=== PATIENT | female | born 1945 | race Caucasian/White ===

== ENCOUNTER 2016-08-28 19:20 | Inpatient (IN) | payer OTHER ==
[2016-08-28 19:28] VITALS: BMI 33.3
[2016-08-28] MEDS ORDERED: VANCOMYCIN 1,250 MG in DEXTROSE 5%-WATER - 250 ML IVPB ONE (19:36)
[2016-08-28] MEDS ORDERED: MEROPENEM 500 MG in DEXTROSE 5%-WATER - 100 ML IVPB ONE (19:37)
--- NOTE | 2016-08-28 20:39 | HP ---
Admitting History and Physical - Primary Care Physician PCP: Sharee Pena - Admission Chief Complaint: sent to er for rlex cellulitis - Past Medical History Cardiovascular: Yes: Other (PVD) - Smoking History Smoking history: Never smoked Have you smoked in the past 12 months: No Aproximately how many cigarettes per day: 0 - Alcohol/Substance Use Hx Alcohol Use: No Home Medications - Allergies Allergies/Adverse Reactions: Allergies Allergy/AdvReac Type Severity Reaction Status Date / Time piperacillin sodium Allergy Intermediate Rash Verified 08/28/16 19:25 [From Zosyn] tazobactam sodium Allergy Intermediate Rash Verified 08/28/16 19:25 [From Zosyn] - Home Medications Home Medications: Ambulatory Orders NK [No Known Home Medication] 05/05/16 Physical Examination Vital Signs: Vital Signs Temperature 97.8 F 08/28/16 19:25 Pulse Rate 107 H 08/28/16 19:25 Respiratory Rate 18 08/28/16 19:25 Blood Pressure 142/94 08/28/16 19:25 O2 Sat by Pulse Oximetry (%) 100 08/28/16 19:25 Constitutional: Yes: No Distress HENT: Yes: Atraumatic Neck: Yes: Supple Cardiovascular: Yes: Regular Rate and Rhythm Respiratory: Yes: CTA Bilaterally Gastrointestinal: Yes: Normal Bowel Sounds Extremities: Yes: Other (RLEX CELLULITIS/STASIS ULCER) Neurological: Yes: Alert, Oriented Problem List - Problems (1) Cellulitis and abscess of leg Assessment/Plan: ON IV ABX PER ID WOUND CARE DRESSING CHANGE Code(s): L02.419 - CUTANEOUS ABSCESS OF LIMB, UNSPECIFIED L03.119 - CELLULITIS OF UNSPECIFIED PART OF LIMB (2) Open wound of lower limb Code(s): S81.809A - UNSPECIFIED OPEN WOUND, UNSPECIFIED LOWER LEG, INIT ENCNTR (3) Venous stasis dermatitis of lower extremity Code(s): I83.10 - VARICOSE VEINS OF UNSP LOWER EXTREMITY WITH INFLAMMATION Assessment/Plan Laboratory Tests 08/28/16 08/28/16 08/28/16 19:30 19:50 19:50 WBC 7.6 RBC 4.75 Hgb 13.4 Hct 40.6 MCV 85.5 MCHC 33.1 RDW 13.9 Plt Count 319 D MPV 8.3 Neutrophils % 65.4 Lymphocytes % 26.0 Monocytes % 6.7 Eosinophils % 1.2 Basophils % 0.7 INR 1.02 PTT (Actin FS) 37.1 H VBG pH POC VBG pCO2 POC VBG pO2 Mixed VBG HCO3 Sodium Potassium Chloride Carbon Dioxide Anion Gap BUN Creatinine Creat Clearance w eGFR Random Glucose Lactic Acid 1.585 Calcium Total Bilirubin AST ALT Alkaline Phosphatase Creatine Kinase CK-MB (CK-2) Troponin I Total Protein Albumin Urine Color Urine Appearance Urine pH Ur Specific [place] Urine Protein Urine Glucose (UA) Urine Ketones Urine Blood Urine Nitrite Urine Bilirubin Urine Urobilinogen Ur Leukocyte Esterase Blood Type Antibody Screen 08/28/16 08/28/16 08/28/16 19:50 19:50 23:43 WBC RBC Hgb Hct MCV MCHC RDW Plt Count MPV Neutrophils % Lymphocytes % Monocytes % Eosinophils % Basophils % INR PTT (Actin FS) VBG pH 7.41 POC VBG pCO2 39.7 POC VBG pO2 61.5 H Mixed VBG HCO3 24.8 Sodium 142 Potassium 4.4 Chloride 105 Carbon Dioxide 27 Anion Gap 10 BUN 19 H Creatinine 0.8 Creat Clearance w eGFR > 60 Random Glucose 93 Lactic Acid Calcium 9.9 Total Bilirubin 0.5 D AST 46 H D ALT 56 D Alkaline Phosphatase 81 Creatine Kinase 333 H CK-MB (CK-2) 4.214 H Troponin I < 0.02 Total Protein 7.7 Albumin 3.8 Urine Color Urine Appearance Urine pH Ur Specific [place] Urine Protein Urine Glucose (UA) Urine Ketones Urine Blood Urine Nitrite Urine Bilirubin Urine Urobilinogen Ur Leukocyte Esterase Blood Type A POSITIVE Antibody Screen Negative 08/29/16 11:06 WBC RBC Hgb Hct MCV MCHC RDW Plt Count MPV Neutrophils % Lymphocytes % Monocytes % Eosinophils % Basophils % INR PTT (Actin FS) VBG pH POC VBG pCO2 POC VBG pO2 Mixed VBG HCO3 Sodium Potassium Chloride Carbon Dioxide Anion Gap BUN Creatinine Creat Clearance w eGFR Random Glucose Lactic Acid Calcium Total Bilirubin AST ALT Alkaline Phosphatase Creatine Kinase CK-MB (CK-2) Troponin I Total Protein Albumin Urine Color Yellow Urine Appearance Slcloudy Urine pH 5.0 Ur Specific [place] 1.027 Urine Protein Negative Urine Glucose (UA) Negative Urine Ketones Negative Urine Blood Negative Urine Nitrite Negative Urine Bilirubin Negative Urine Urobilinogen Negative Ur Leukocyte Esterase Negative Blood Type Antibody Screen Active Medications Generic Name Dose Route Start Last Admin Trade Name Freq PRN Reason Stop Dose Admin Heparin Sodium (Porcine) 5,000 unit 08/28/16 22:00 08/29/16 10:41 Heparin - SQ 5,000 unit BID RACHAEL Administration Vancomycin HCl 250 mls @ 250 mls/hr 08/29/16 16:15 08/29/16 18:00 Vancomycin (Pre-Docked) IVPB 250 mls/hr DAILY RACHAEL Administration Protocol Meropenem 1 gm/ Dextrose 100 mls @ 250 mls/hr 08/29/16 16:15 08/29/16 17:09 IVPB 250 mls/hr Q8H-IV RACHAEL Administration Protocol
--- NOTE | 2016-08-28 20:43 | PDOC ---
History of Present Illness - General History Source: Patient <Bulmaro Mansfield - Last Filed: 08/28/16 22:03> - History of Present Illness Initial Comments: 08/28/16 20:44 The patient is a 71 year old female with history of venous stasis dermatitis chronic right lower extremity cellulitis sent to the ED by ID for hospital admission. She notes she has had persistent right lower extremity cellulitis since her last hospital stay in April 2016 with pain and drainage made worse last night. The patient denies fever or chills. She denies nausea, vomiting, or diarrhea. She denies chest pain or shortness of breath. She is to be admitted under Dr. Pena. Pt is allergic to Zosyn. ID: Being followed by Dr. Stroud <Natividad Velez - Last Filed: 08/28/16 22:48> - General Chief Complaint: Wound Infection Stated Complaint: PCP ADMIT Time Seen by Provider: 08/28/16 19:24 Past History - Past Medical History Anemia: No Asthma: No Cancer: No Cardiac Disorders: No CVA: No COPD: No CHF: No Dementia: No Diabetes: No GI Disorders: No Disorders: No HTN: No Hypercholesterolemia: No Liver Disease: No Seizures: No Thyroid Disease: No - Psycho/Social/Smoking Cessation Hx Anxiety: No Suicidal Ideation: No Smoking History: Never smoked Have you smoked in the past 12 months: No Number of Cigarettes Smoked Daily: 0 Information on smoking cessation initiated: No Hx Alcohol Use: No Drug/Substance Use Hx: No Substance Use Type: None Hx Substance Use Treatment: No <ShivaraBulmaro - Last Filed: 08/28/16 22:03> <Natividad Velez - Last Filed: 08/28/16 22:48> - Past Medical History Allergies/Adverse Reactions: Allergies Allergy/AdvReac Type Severity Reaction Status Date / Time piperacillin sodium Allergy Intermediate Rash Verified 08/28/16 19:25 [From Zosyn] tazobactam sodium Allergy Intermediate Rash Verified 08/28/16 19:25 [From Zosyn] Home Medications: Ambulatory Orders NK [No Known Home Medication] 05/05/16 Review of Systems - Review of Systems Able to Perform ROS?: Yes Comments:: 08/28/16 20:47 GENERAL/CONSTITUTIONAL: No fever or chills. No weakness. HEAD, EYES, EARS, NOSE AND THROAT: No change in vision. No ear pain or discharge. No sore throat CARDIOVASCULAR: No chest pain or shortness of breath. RESPIRATORY: No cough, wheezing, or hemoptysis. GASTROINTESTINAL: No nausea, vomiting, diarrhea or constipation. GENITOURINARY: No dysuria, frequency, or change in urination. MUSCULOSKELETAL: No joint or muscle swelling or pain. No neck or back pain. SKIN: Right lower extremity wound with associated pain and malodorous drainage. NEUROLOGIC: No headache, vertigo, loss of consciousness, or change in strength/ sensation. ENDOCRINE: No increased thirst. No abnormal weight change. HEMATOLOGIC/LYMPHATIC: No anemia, easy bleeding, or history of blood clots. ALLERGIC/IMMUNOLOGIC: No hives or skin allergy. <Natividad Velez - Last Filed: 08/28/16 22:48> *Physical Exam - Vital Signs Last Vital Signs Temp Pulse Resp BP Pulse Ox 97.8 F 107 H 18 142/94 100 08/28/16 19:25 08/28/16 19:25 08/28/16 19:25 08/28/16 19:25 08/28/16 19:25 <Bulmaro Mansfield - Last Filed: 08/28/16 22:03> - Vital Signs Last Vital Signs Temp Pulse Resp BP Pulse Ox 97.8 F 107 H 18 142/94 100 08/28/16 19:25 08/28/16 19:25 08/28/16 19:25 08/28/16 19:25 08/28/16 19:25 - Physical Exam Comments: 08/28/16 20:52 GENERAL: Awake, alert, and fully oriented, in no acute distress HEAD: No signs of trauma EYES: PERRLA, EOMI, sclera anicteric, conjunctiva clear ENT: Auricles normal inspection, hearing grossly normal, nares patent, oropharynx clear without exudates. Moist mucosa NECK: Normal ROM, supple, no lymphadenopathy, JVD, or masses LUNGS: Breath sounds equal, clear to auscultation bilaterally. No wheezes, and no crackles HEART: Regular rate and rhythm, normal S1 and S2, no murmurs, rubs or gallops ABDOMEN: Soft, obese, nontender, normoactive bowel sounds. No guarding, no rebound. No masses EXTREMITIES: Normal range of motion, no edema. No clubbing or cyanosis. No cords. NEUROLOGICAL: Cranial nerves II through XII grossly intact. Normal speech, normal gait SKIN: Right lower extremity is diffusely erythematous on the right calf and ankle.Superficial draining wounds lateral malleolus. Brawny venous stasis changes. Otherwise warm, dry, normal turgor. <Natividad Velez - Last Filed: 08/28/16 22:48> Heart Score/ECG Review #1 08/28/16 20:58 EKG obtained 20:52. *Poor data quality* Sinus tachycardia, minimal voltage criteria for LVH, may benormal variant. Inferior infarct, age undetermined. Anterolateral infarct, age undertimed. Abnormal ECG. Vent rate 104 bpm. <Natividad Velez - Last Filed: 08/28/16 22:48> ED Treatment Course - LABORATORY CBC & Chemistry Diagram: 08/28/16 19:50 08/28/16 19:50 <Bulmaro Mansfield - Last Filed: 08/28/16 22:03> - LABORATORY CBC & Chemistry Diagram: 08/28/16 19:50 08/28/16 19:50 - RADIOLOGY Radiograph Interpretation: 08/28/16 22:47 RLE Doppler US read by Dr. Dos Santos as negative for DVT. 08/28/16 22:48 Chest x-ray, read and reviewed by Dr. Dos Santos, reveals no significant change from previous imaging. Mild cardiomegaly with no acute lung disease. <Natividad Velez - Last Filed: 08/28/16 22:48> Medical Decision Making - Medical Decision Making 08/28/16 22:03 Dr. Mansfield: The scribe's documentation has been prepared under my direction and personally reviewed by me in its entirery. I confirm that the note above accurately reflects all work, treatment, procedures, and medical decision making performed by me. Patient will be Admitted for iV antibiotics for right leg cellulitis to [facility]. <Bulmaro Mansfield - Last Filed: 08/28/16 22:03> *DC/Admit/Observation/Transfer - Discharge Dispostion Admit: Yes <Bulmaro Mansfield - Last Filed: 08/28/16 22:03> - Attestations Scribe Attestion: 08/28/16 20:54 Documentation prepared by Natividad Velez, acting as manager medical affairs for Bulmaro Mansfield DO. <Natividad Velez - Last Filed: 08/28/16 22:48> Diagnosis at time of Disposition: Open wound of lower limb, Cellulitis and abscess of leg - Referrals
[2016-08-28 20:59] LABS: BASOPHIL 0.7 % (0-2.0); EOSINOPHIL 1.2 % (0-4.5); MCH 28.3 pg (25.7-33.7); MCHC 33.1 g/dl (32.0-36.0); MEAN CELL VOLUME 85.5 fl (80-96); MEAN PLT VOLUME 8.3 fl (7.5-11.1); NEUTROPHILS 65.4 % (42.8-82.8); PLATELET COUNT 319 K/MM3 (134-434); RDW 13.9 % (11.6-15.6); WHITE BLOOD COUNT 7.6 K/mm3 (4.0-10.0)
[2016-08-28 21:09] LABS: ALBUMIN 3.8 g/dl (3.4-5.0); ANION GAP 10 (8-16); BILIRUBIN,TOTAL 0.5 mg/dL (0.2-1.0); CALCIUM 9.9 mg/dL (8.5-10.1); CO2 27 mmol/L (21-32); CREATININE 0.8 mg/dL (0.55-1.02); GLUCOSE,RANDOM 93 mg/dL (74-106); SGPT/ALT 56 U/L (12-78); TOT PROT 7.7 g/dl (6.4-8.2)
[2016-08-28 21:12] LABS: ALK PHOS 81 U/L (45-117); TROPONIN I < 0.02 ng/ml (0.00-0.05)
[2016-08-28 21:16] LABS: INR 1.02 (0.82-1.09); PROTHROMBIN TIME (PATIENT) 11.2 SEC (9.98-11.88)
[2016-08-28 21:19] LABS: ACTIVATED PTT 37.1 SECONDS (26.9-34.4); SGOT/AST 46 U/L (15-37)
[2016-08-28] MEDS ORDERED: morphine CARPU-JECT 2 MG/1 ML DISP.SYRIN IVPUSH ONE (22:00)
[2016-08-28] MEDS ORDERED: ONDANSETRON 4 MG/2 ML VIAL IVPUSH STA (22:00)
[2016-08-28] MEDS ORDERED: morphine CARPU-JECT 2 MG/1 ML DISP.SYRIN ONE (22:01)
[2016-08-28] MEDS ORDERED: morphine CARPU-JECT 4 MG/1 ML DISP.SYRIN ONE (22:01)
[2016-08-28] MEDS ORDERED: ONDANSETRON 4 MG/2 ML VIAL ONE (22:01)
[2016-08-28] MEDS: HEPARIN NA (PORCINE) 5,000 UNITS/ML 1ML VIAL SQ SCH (22:20)
[2016-08-28 23:55] LABS: VENOUS BLOOD GAS HCO3 24.8 meq/L (19-25); VENOUS PH 7.41 (7.32-7.42)
[2016-08-29] MEDS ORDERED: morphine CARPU-JECT 2 MG/1 ML DISP.SYRIN IVPUSH ONE (02:38)
[2016-08-29] MEDS ORDERED: morphine CARPU-JECT 2 MG/1 ML DISP.SYRIN ONE (02:39)
[2016-08-29] MEDS ORDERED: morphine CARPU-JECT 4 MG/1 ML DISP.SYRIN ONE (02:39)
[2016-08-29] MEDS ORDERED: HEPARIN NA (PORCINE) 5,000 UNITS/ML 1ML VIAL ONE (10:15)
[2016-08-29] MEDS: HEPARIN NA (PORCINE) 5,000 UNITS/ML 1ML VIAL SQ SCH ×2 (10:41→21:30)
[2016-08-29 11:20] LABS: URINE APPEARANCE SLCLOUDY; URINE BILIRUBIN NEGATIVE (NEGATIVE); URINE BLOOD NEGATIVE (NEGATIVE); URINE COLOR YELLOW; URINE GLUCOSE (UA) NEGATIVE (NEGATIVE); URINE KETONE NEGATIVE (NEGATIVE); URINE LEUK ESTERASE NEGATIVE (NEGATIVE); URINE NITRITE NEGATIVE (NEGATIVE); URINE PROTEIN NEGATIVE (NEGATIVE); URINE UROBILINOGEN NEGATIVE E.U./dl (0.2-1.0)
--- NOTE | 2016-08-29 14:35 | CONSULT ---
Consult Consult Specialty:: infectious diseases Referred by:: Reason for Consultation:: cellulitis of the rt leg - History of Present Illness Chief Complaint: swelling of the leg with increased oozing History of Present Illness: 71 year old female with a history of chronic venous stasis dermatitis and RLE cellulitis, s/p hospitalizatioln in April 2016 for cellulitis was admitted for worsening of cellulitis and pain in the leg patient has been having abx and treatment for last 3 months and her leg ahs been waxing and waning and in the last 2 weeks patients drainage from the leg with pain has increased and it is hard for her to bear weight patient when came to the office had profuse drainage which was very foul smelling and the pain had increased patient did not want to get admitted but i told her that there is no other choice that iv abx at this time after trying for last 3 months to control her infection and cellulits and drainage and failure of multiple oral abx treatment and she agreed and got admitted in the hospital for treatment - History Source History Provided By: Patient Limitations to Obtaining History: No Limitations - Alcohol/Substance Use Hx Alcohol Use: No - Smoking History Smoking history: Never smoked Have you smoked in the past 12 months: No Aproximately how many cigarettes per day: 0 Home Medications - Allergies Allergies/Adverse Reactions: Allergies Allergy/AdvReac Type Severity Reaction Status Date / Time piperacillin sodium Allergy Intermediate Rash Verified 08/28/16 19:25 [From Zosyn] tazobactam sodium Allergy Intermediate Rash Verified 08/28/16 19:25 [From Zosyn] - Home Medications Home Medications: Ambulatory Orders NK [No Known Home Medication] 05/05/16 Review of Systems - Review of Systems Constitutional: reports: Other Eyes: reports: No Symptoms HENT: reports: No Symptoms Neck: reports: No Symptoms Cardiovascular: reports: No Symptoms Respiratory: reports: No Symptoms Gastrointestinal: reports: No Symptoms Genitourinary: reports: No Symptoms Musculoskeletal: reports: No Symptoms Integumentary: reports: Erythema Neurological: reports: No Symptoms Endocrine: reports: No Symptoms Hematology/Lymphatic: reports: No Symptoms Psychiatric: reports: No Symptoms Physical Exam Vital Signs: Vital Signs Temperature 98.1 F 08/29/16 11:51 Pulse Rate 78 08/29/16 11:51 Respiratory Rate 18 08/29/16 11:51 Blood Pressure 127/56 08/29/16 11:51 O2 Sat by Pulse Oximetry (%) 95 08/29/16 11:51 Constitutional: Yes: Calm, Mild Distress, Obese Eyes: Yes: Conjunctiva Clear HENT: Yes: Atraumatic, Normocephalic Neck: Yes: Supple Cardiovascular: Yes: Regular Rate and Rhythm Respiratory: Yes: Regular, CTA Bilaterally Gastrointestinal: Yes: Normal Bowel Sounds, Soft Musculoskeletal: Yes: Muscle Pain Extremities: Yes: Erythema (rt leg), Other (profuse draiange from the leg) Edema: LLE: Trace, RLE: Trace Integumentary: Yes: Erythema Neurological: Yes: Alert, Oriented Psychiatric: Yes: Alert Imaging - Results Chest X-ray: Report Reviewed, Image Reviewed Ultrasound: Report Reviewed, Image Reviewed Assessment/Plan Problem List - Problems (1) Cellulitis and abscess of leg Code(s): L02.419 - CUTANEOUS ABSCESS OF LIMB, UNSPECIFIED L03.119 - CELLULITIS OF UNSPECIFIED PART OF LIMB (2) Open wound of lower limb Code(s): S81.809A - UNSPECIFIED OPEN WOUND, UNSPECIFIED LOWER LEG, INIT ENCNTR plan will start on abx close watch wound care elevation of the leg
--- NOTE | 2016-08-29 16:09 | EKG ---
Test Reason : Blood Pressure : / mmHG Vent. Rate : 104 BPM Atrial Rate : 104 BPM P-R Int : 162 ms QRS Dur : 080 ms QT Int : 336 ms P-R-T Axes : 036 -25 018 degrees QTc Int : 441 ms POOR DATA QUALITY, INTERPRETATION MAY BE ADVERSELY AFFECTED SINUS TACHYCARDIA MINIMAL VOLTAGE CRITERIA FOR LVH, MAY BE NORMAL VARIANT INFERIOR INFARCT , AGE UNDETERMINED ANTEROLATERAL INFARCT , AGE UNDETERMINED ABNORMAL ECG WHEN COMPARED WITH ECG OF 29-MAR-2016 01:25, ANTERIOR INFARCT IS NOW PRESENT ANTEROLATERAL INFARCT IS NOW PRESENT NO SIGNIFICANT CHANGE WAS FOUND Confirmed by SANDRA HOLLINS MD ([id number]) on 08/29/2016 4:08:30 PM Referred By: Confirmed By:SANDRA HOLLINS MD
[2016-08-29] MEDS ORDERED: MEROPENEM 1 GM in DEXTROSE 5%-WATER - 250 ML IVPB SCH (16:15)
[2016-08-29] MEDS ORDERED: MEROPENEM 1 GM in DEXTROSE 5%-WATER - 100 ML IVPB SCH (16:15)
[2016-08-29] MEDS: MEROPENEM 1 GM in DEXTROSE 5%-WATER - 100 ML IVPB SCH (17:09)
[2016-08-29] MEDS: VANCOMYCIN 1 GRAM (PRE-DOCKED) 250 ML IVPB SCH (18:00)
--- NOTE | 2016-08-29 19:44 | PN ---
Progress Note, Physician History of Present Illness: STABLE - Current Medication List Current Medications: Active Medications Heparin Sodium (Porcine) (Heparin -) 5,000 unit SQ BID RACHAEL Last Admin: 08/29/16 10:41 Dose: 5,000 unit Vancomycin HCl (Vancomycin (Pre-Docked)) 250 mls @ 250 mls/hr IVPB DAILY RACHAEL PRN Reason: Protocol Last Admin: 08/29/16 18:00 Dose: 250 mls/hr Meropenem 1 gm/ Dextrose 100 mls @ 250 mls/hr IVPB Q8H-IV RACHAEL PRN Reason: Protocol Last Admin: 08/29/16 17:09 Dose: 250 mls/hr - Objective Vital Signs: Vital Signs Temperature 98.1 F 08/29/16 19:00 Pulse Rate 82 08/29/16 19:00 Respiratory Rate 18 08/29/16 19:00 Blood Pressure 127/70 08/29/16 19:00 O2 Sat by Pulse Oximetry (%) 95 08/29/16 11:51 Constitutional: Yes: No Distress HENT: Yes: Atraumatic Neck: Yes: Supple Cardiovascular: Yes: Regular Rate and Rhythm Respiratory: Yes: CTA Bilaterally Gastrointestinal: Yes: Normal Bowel Sounds Extremities: Yes: Other (RLEX CELLULITIS) Neurological: Yes: Alert, Oriented Labs: INR, PTT INR 1.02 (0.82-1.09) 08/28/16 19:50 Problem List - Problems (1) Cellulitis and abscess of leg Code(s): L02.419 - CUTANEOUS ABSCESS OF LIMB, UNSPECIFIED L03.119 - CELLULITIS OF UNSPECIFIED PART OF LIMB (2) Open wound of lower limb Code(s): S81.809A - UNSPECIFIED OPEN WOUND, UNSPECIFIED LOWER LEG, INIT ENCNTR (3) Venous stasis dermatitis of lower extremity Code(s): I83.10 - VARICOSE VEINS OF UNSP LOWER EXTREMITY WITH INFLAMMATION Assessment/Plan 1.R FOOT CELLULITIS IV ABX, WOUND CARE PRN PAIN MEDS MULTI VITAMIN
[2016-08-29] MEDS ORDERED: oxyCODONE HCL 5 MG TABLET PO PRN (20:36)
[2016-08-29] MEDS: oxyCODONE HCL 5 MG TABLET PO PRN (21:31)
[2016-08-29] MEDS: ACETAMINOPHEN 325 MG TABLET (FP) PO PRN (21:32)
[2016-08-30] MEDS ORDERED: PT OWN MED DRAWER 7, Y5N ONE (00:51)
[2016-08-30] MEDS: MEROPENEM 1 GM in DEXTROSE 5%-WATER - 100 ML IVPB SCH ×3 (01:25→18:05)
[2016-08-30] MEDS: oxyCODONE HCL 5 MG TABLET PO PRN ×3 (06:47→22:09)
[2016-08-30] MEDS: ACETAMINOPHEN 325 MG TABLET (FP) PO PRN ×3 (06:48→22:08)
[2016-08-30] MEDS: HEPARIN NA (PORCINE) 5,000 UNITS/ML 1ML VIAL SQ SCH ×2 (10:08→22:10)
[2016-08-30] MEDS: VANCOMYCIN 1 GRAM (PRE-DOCKED) 250 ML IVPB SCH (10:42)
--- NOTE | 2016-08-30 13:37 | PN ---
Progress Note, Physician History of Present Illness: leg still paining still oozing but she feels better - Current Medication List Current Medications: Active Medications Acetaminophen (Tylenol -) 325 mg PO Q4H PRN PRN Reason: FEVER OR PAIN Acetaminophen (Tylenol -) 650 mg PO Q4H PRN PRN Reason: FEVER OR PAIN Last Admin: 08/30/16 06:48 Dose: 650 mg Heparin Sodium (Porcine) (Heparin -) 5,000 unit SQ BID RACHAEL Last Admin: 08/30/16 10:08 Dose: 5,000 unit Vancomycin HCl (Vancomycin (Pre-Docked)) 250 mls @ 250 mls/hr IVPB DAILY RACHAEL PRN Reason: Protocol Last Admin: 08/30/16 10:42 Dose: 250 mls/hr Meropenem 1 gm/ Dextrose 100 mls @ 250 mls/hr IVPB Q8H-IV RACHAEL PRN Reason: Protocol Last Admin: 08/30/16 10:08 Dose: 250 mls/hr Oxycodone HCl (Roxicodone -) 5 mg PO Q4H PRN Oxycodone HCl (Roxicodone -) 10 mg PO Q4H PRN Last Admin: 08/30/16 06:47 Dose: 10 mg - Objective Vital Signs: Vital Signs Temperature 98.8 F 08/30/16 08:00 Pulse Rate 79 08/30/16 08:00 Respiratory Rate 20 08/30/16 08:00 Blood Pressure 108/65 08/30/16 08:00 O2 Sat by Pulse Oximetry (%) 95 08/29/16 20:31 Constitutional: Yes: No Distress, Calm HENT: Yes: Atraumatic, Normocephalic Cardiovascular: Yes: Regular Rate and Rhythm Respiratory: Yes: Regular, CTA Bilaterally Gastrointestinal: Yes: Normal Bowel Sounds, Soft Musculoskeletal: Yes: WNL Extremities: Yes: Erythema (improving), Other (wound seen still oozing a lot cellulitis improving) Integumentary: Yes: Erythema (resolving), Venous Stasis Changes, Other (oozing) Neurological: Yes: Alert, Oriented Psychiatric: Yes: Alert, Oriented Labs: INR, PTT INR 1.02 (0.82-1.09) 08/28/16 19:50 Assessment/Plan Problem List - Problems (1) Cellulitis and abscess of leg Code(s): L02.419 - CUTANEOUS ABSCESS OF LIMB, UNSPECIFIED L03.119 - CELLULITIS OF UNSPECIFIED PART OF LIMB (2) Open wound of lower limb Code(s): S81.809A - UNSPECIFIED OPEN WOUND, UNSPECIFIED LOWER LEG, INIT ENCNTR plan continue abx continue monitoring wound cx result noted await for identification of the organism await for sensitivites
--- NOTE | 2016-08-30 17:14 | PN ---
Progress Note, Physician History of Present Illness: STABLE - Current Medication List Current Medications: Active Medications Acetaminophen (Tylenol -) 325 mg PO Q4H PRN PRN Reason: FEVER OR PAIN Last Admin: 08/30/16 13:43 Dose: 325 mg Acetaminophen (Tylenol -) 650 mg PO Q4H PRN PRN Reason: FEVER OR PAIN Last Admin: 08/30/16 06:48 Dose: 650 mg Ascorbic Acid (Vitamin C -) 500 mg PO DAILY [facility] Heparin Sodium (Porcine) (Heparin -) 5,000 unit SQ BID RACHAEL Last Admin: 08/30/16 10:08 Dose: 5,000 unit Vancomycin HCl (Vancomycin (Pre-Docked)) 250 mls @ 250 mls/hr IVPB DAILY RACHAEL PRN Reason: Protocol Last Admin: 08/30/16 10:42 Dose: 250 mls/hr Meropenem 1 gm/ Dextrose 100 mls @ 250 mls/hr IVPB Q8H-IV RACHAEL PRN Reason: Protocol Last Admin: 08/30/16 10:08 Dose: 250 mls/hr Multivitamins/Minerals/Vitamin C (Tab-A-Vit -) 1 tab PO DAILY [facility] Oxycodone HCl (Roxicodone -) 5 mg PO Q4H PRN Oxycodone HCl (Roxicodone -) 10 mg PO Q4H PRN Last Admin: 08/30/16 13:44 Dose: 10 mg - Objective Vital Signs: Vital Signs Temperature 99 F 08/30/16 14:53 Pulse Rate 79 08/30/16 14:53 Respiratory Rate 20 08/30/16 14:53 Blood Pressure 118/65 08/30/16 14:53 O2 Sat by Pulse Oximetry (%) 97 08/30/16 09:00 Constitutional: Yes: No Distress HENT: Yes: Atraumatic Neck: Yes: Supple Cardiovascular: Yes: Regular Rate and Rhythm Respiratory: Yes: CTA Bilaterally Gastrointestinal: Yes: Normal Bowel Sounds Extremities: Yes: Other (R СЕРГЕЙ CELLULITIS) Neurological: Yes: Alert, Oriented Labs: INR, PTT INR 1.02 (0.82-1.09) 08/28/16 19:50 Problem List - Problems (1) Cellulitis and abscess of leg Code(s): L02.419 - CUTANEOUS ABSCESS OF LIMB, UNSPECIFIED L03.119 - CELLULITIS OF UNSPECIFIED PART OF LIMB (2) Open wound of lower limb Code(s): S81.809A - UNSPECIFIED OPEN WOUND, UNSPECIFIED LOWER LEG, INIT ENCNTR (3) Venous stasis dermatitis of lower extremity Code(s): I83.10 - VARICOSE VEINS OF UNSP LOWER EXTREMITY WITH INFLAMMATION Assessment/Plan Assessment/Plan 1.R FOOT CELLULITIS IV ABX, WOUND CARE PRN PAIN MEDS MULTI VITAMIN WOUND CARE CONSULT
[2016-08-30] MEDS: ASCORBIC ACID 500 MG TABLET (FP) PO SCH (18:06)
[2016-08-30] MEDS: MULTIVITAMINS (DAILY MVI) TABLET (FP) PO SCH (18:06)
[2016-08-31] MEDS ORDERED: PT OWN MED DRAWER 7, Y5N ONE ×2 (01:16→18:10)
[2016-08-31] MEDS: MEROPENEM 1 GM in DEXTROSE 5%-WATER - 100 ML IVPB SCH ×3 (01:37→18:19)
[2016-08-31] MEDS: oxyCODONE HCL 5 MG TABLET PO PRN ×4 (05:43→21:11)
[2016-08-31] MEDS: ACETAMINOPHEN 325 MG TABLET (FP) PO PRN ×2 (05:44→14:24)
[2016-08-31] MEDS: MULTIVITAMINS (DAILY MVI) TABLET (FP) PO SCH (10:30)
[2016-08-31] MEDS: ASCORBIC ACID 500 MG TABLET (FP) PO SCH (10:30)
[2016-08-31] MEDS: HEPARIN NA (PORCINE) 5,000 UNITS/ML 1ML VIAL SQ SCH ×2 (10:30→21:11)
[2016-08-31] MEDS: VANCOMYCIN 1 GRAM (PRE-DOCKED) 250 ML IVPB SCH (10:31)
--- NOTE | 2016-08-31 15:30 | PN ---
Progress Note, Physician History of Present Illness: patient starting to feel better foul smell still present but better still oozing a lot dresing changed couple of times pain presnt but improving - Current Medication List Current Medications: Active Medications Acetaminophen (Tylenol -) 325 mg PO Q4H PRN PRN Reason: FEVER OR PAIN Last Admin: 08/30/16 13:43 Dose: 325 mg Acetaminophen (Tylenol -) 650 mg PO Q4H PRN PRN Reason: FEVER OR PAIN Last Admin: 08/31/16 14:24 Dose: 650 mg Ascorbic Acid (Vitamin C -) 500 mg PO DAILY [facility] Last Admin: 08/31/16 10:30 Dose: 500 mg Heparin Sodium (Porcine) (Heparin -) 5,000 unit SQ BID [facility] Last Admin: 08/31/16 10:30 Dose: 5,000 unit Vancomycin HCl (Vancomycin (Pre-Docked)) 250 mls @ 250 mls/hr IVPB DAILY RACHAEL PRN Reason: Protocol Last Admin: 08/31/16 10:31 Dose: 250 mls/hr Meropenem 1 gm/ Dextrose 100 mls @ 250 mls/hr IVPB Q8H-IV RACHAEL PRN Reason: Protocol Last Admin: 08/31/16 10:28 Dose: 250 mls/hr Multivitamins/Minerals/Vitamin C (Tab-A-Vit -) 1 tab PO DAILY [facility] Last Admin: 08/31/16 10:30 Dose: 1 tab Oxycodone HCl (Roxicodone -) 5 mg PO Q4H PRN Oxycodone HCl (Roxicodone -) 10 mg PO Q4H PRN Last Admin: 08/31/16 14:23 Dose: 10 mg - Objective Vital Signs: Vital Signs Temperature 98.5 F 08/31/16 14:31 Pulse Rate 73 08/31/16 14:31 Respiratory Rate 18 08/31/16 14:31 Blood Pressure 135/94 08/31/16 14:31 O2 Sat by Pulse Oximetry (%) 97 08/30/16 09:00 Constitutional: Yes: Calm, Mild Distress Cardiovascular: Yes: Regular Rate and Rhythm Respiratory: Yes: Regular, CTA Bilaterally Gastrointestinal: Yes: Normal Bowel Sounds, Soft Musculoskeletal: Yes: Other Extremities: Yes: Other (oozing) Integumentary: Yes: Erythema (improving) Neurological: Yes: Alert, Oriented Psychiatric: Yes: Alert Labs: INR, PTT INR 1.02 (0.82-1.09) 08/28/16 19:50 Assessment/Plan Problem List - Problems (1) Cellulitis and abscess of leg Code(s): L02.419 - CUTANEOUS ABSCESS OF LIMB, UNSPECIFIED L03.119 - CELLULITIS OF UNSPECIFIED PART OF LIMB (2) Open wound of lower limb Code(s): S81.809A - UNSPECIFIED OPEN WOUND, UNSPECIFIED LOWER LEG, INIT ENCNTR plan continue abx continue monitoring wound cx result noted sensitivities noted await for one more organism leg still not out of [place] yet will have to make a decision depending on drainage 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
--- NOTE | 2016-08-31 18:52 | PN ---
Progress Note, Physician History of Present Illness: STABLE - Current Medication List Current Medications: Active Medications Acetaminophen (Tylenol -) 325 mg PO Q4H PRN PRN Reason: FEVER OR PAIN Last Admin: 08/30/16 13:43 Dose: 325 mg Acetaminophen (Tylenol -) 650 mg PO Q4H PRN PRN Reason: FEVER OR PAIN Last Admin: 08/31/16 14:24 Dose: 650 mg Ascorbic Acid (Vitamin C -) 500 mg PO DAILY [facility] Last Admin: 08/31/16 10:30 Dose: 500 mg Heparin Sodium (Porcine) (Heparin -) 5,000 unit SQ BID [facility] Last Admin: 08/31/16 10:30 Dose: 5,000 unit Vancomycin HCl (Vancomycin (Pre-Docked)) 250 mls @ 250 mls/hr IVPB DAILY [facility] PRN Reason: Protocol Last Admin: 08/31/16 10:31 Dose: 250 mls/hr Meropenem 1 gm/ Dextrose 100 mls @ 250 mls/hr IVPB Q8H-IV [facility] PRN Reason: Protocol Last Admin: 08/31/16 18:19 Dose: 250 mls/hr Multivitamins/Minerals/Vitamin C (Tab-A-Vit -) 1 tab PO DAILY [facility] Last Admin: 08/31/16 10:30 Dose: 1 tab Oxycodone HCl (Roxicodone -) 5 mg PO Q4H PRN Oxycodone HCl (Roxicodone -) 10 mg PO Q4H PRN Last Admin: 08/31/16 14:23 Dose: 10 mg - Objective Vital Signs: Vital Signs Temperature 98.2 F 08/31/16 18:00 Pulse Rate 70 08/31/16 18:00 Respiratory Rate 20 08/31/16 18:00 Blood Pressure 132/60 08/31/16 18:00 O2 Sat by Pulse Oximetry (%) 97 08/31/16 09:00 Constitutional: Yes: No Distress HENT: Yes: Atraumatic Neck: Yes: Supple Cardiovascular: Yes: Regular Rate and Rhythm Respiratory: Yes: CTA Bilaterally Gastrointestinal: Yes: Normal Bowel Sounds Extremities: Yes: WNL Edema: LLE: 2+, RLE: 3+ Neurological: Yes: Alert, Oriented Labs: INR, PTT INR 1.02 (0.82-1.09) 08/28/16 19:50 Problem List - Problems (1) Cellulitis and abscess of leg Code(s): L02.419 - CUTANEOUS ABSCESS OF LIMB, UNSPECIFIED L03.119 - CELLULITIS OF UNSPECIFIED PART OF LIMB (2) Open wound of lower limb Code(s): S81.809A - UNSPECIFIED OPEN WOUND, UNSPECIFIED LOWER LEG, INIT ENCNTR (3) Venous stasis dermatitis of lower extremity Code(s): I83.10 - VARICOSE VEINS OF UNSP LOWER EXTREMITY WITH INFLAMMATION Assessment/Plan Assessment/Plan 1.R FOOT CELLULITIS IV ABX, WOUND CARE PRN PAIN MEDS MULTI VITAMIN WOUND CARE CONSULT id note reviewed picc line?
[2016-09-01] MEDS: MEROPENEM 1 GM in DEXTROSE 5%-WATER - 100 ML IVPB SCH ×3 (02:01→17:55)
[2016-09-01] MEDS ORDERED: PT OWN MED DRAWER 7, Y5N ONE ×2 (04:55→17:53)
[2016-09-01] MEDS: oxyCODONE HCL 5 MG TABLET PO PRN ×3 (05:01→22:06)
[2016-09-01] MEDS: ACETAMINOPHEN 325 MG TABLET (FP) PO PRN ×3 (05:02→22:06)
[2016-09-01 07:22] LABS: BASOPHIL 0.8 % (0-2.0); EOSINOPHIL 2.6 % (0-4.5); MCH 28.6 pg (25.7-33.7); MCHC 33.3 g/dl (32.0-36.0); MEAN PLT VOLUME 7.9 fl (7.5-11.1); NEUTROPHILS 61.8 % (42.8-82.8); PLATELET COUNT 225 K/MM3 (134-434); RDW 13.9 % (11.6-15.6); WHITE BLOOD COUNT 5.3 K/mm3 (4.0-10.0)
[2016-09-01 08:45] LABS: ALBUMIN 3.4 g/dl (3.4-5.0); ALK PHOS 73 U/L (45-117); ANION GAP 8 (8-16); BILIRUBIN,TOTAL 0.7 mg/dL (0.2-1.0); CALCIUM 9.3 mg/dL (8.5-10.1); CO2 29 mmol/L (21-32); CREATININE 0.8 mg/dL (0.55-1.02); GLUCOSE,RANDOM 95 mg/dL (74-106); SGOT/AST 20 U/L (15-37); SGPT/ALT 34 U/L (12-78)
--- NOTE | 2016-09-01 09:55 | CONSULT ---
Consult - Past Medical History Cardio/Vascular: Yes: Other (PVD) - Alcohol/Substance Use Hx Alcohol Use: No - Smoking History Smoking history: Never smoked Have you smoked in the past 12 months: No Aproximately how many cigarettes per day: 0 Home Medications - Allergies Allergies/Adverse Reactions: Allergies Allergy/AdvReac Type Severity Reaction Status Date / Time piperacillin sodium Allergy Intermediate Rash Verified 08/28/16 19:25 [From Zosyn] tazobactam sodium Allergy Intermediate Rash Verified 08/28/16 19:25 [From Zosyn] - Home Medications Home Medications: Ambulatory Orders NK [No Known Home Medication] 05/05/16 Physical Exam Vital Signs: Vital Signs Temperature 97.2 F L 09/01/16 06:00 Pulse Rate 67 09/01/16 06:00 Respiratory Rate 20 09/01/16 06:00 Blood Pressure 120/70 09/01/16 06:00 O2 Sat by Pulse Oximetry (%) 97 08/31/16 09:00 Labs: CBC, BMP 09/01/16 06:00 09/01/16 08:00 Assessment/Plan Vascular surgery Pt seen and examined. dressing changed. Left lower extremity with palpable DP pulse. Pt with drainaige on dressing. Pt with Venous stasis and excoriations medial malleous. Due to venous insuff. Leg wrapped with LEO for compression. Will need to come to wound care clinic for venous reflux studies. Will then need EVLT ( endovenous laser therapy) for venous insuff. This will decrease the drainage and help the swelling. Can wear LEO for compression for now. When pt comes to wound care clinic will fit pts with tubagrips. Antibiotics for current cellulitis. Will follow. Jr Larios DO
[2016-09-01] MEDS: ASCORBIC ACID 500 MG TABLET (FP) PO SCH (10:23)
[2016-09-01] MEDS: MULTIVITAMINS (DAILY MVI) TABLET (FP) PO SCH (10:23)
[2016-09-01] MEDS: HEPARIN NA (PORCINE) 5,000 UNITS/ML 1ML VIAL SQ SCH ×2 (10:24→22:04)
[2016-09-01] MEDS: VANCOMYCIN 1 GRAM (PRE-DOCKED) 250 ML IVPB SCH (10:24)
--- NOTE | 2016-09-01 14:33 | PN ---
Progress Note, Physician History of Present Illness: patient stable drainage still present - Current Medication List Current Medications: Active Medications Acetaminophen (Tylenol -) 325 mg PO Q4H PRN PRN Reason: FEVER OR PAIN Last Admin: 08/30/16 13:43 Dose: 325 mg Acetaminophen (Tylenol -) 650 mg PO Q4H PRN PRN Reason: FEVER OR PAIN Last Admin: 09/01/16 10:23 Dose: 650 mg Ascorbic Acid (Vitamin C -) 500 mg PO DAILY [facility] Last Admin: 09/01/16 10:23 Dose: 500 mg Heparin Sodium (Porcine) (Heparin -) 5,000 unit SQ BID [facility] Last Admin: 09/01/16 10:24 Dose: 5,000 unit Vancomycin HCl (Vancomycin (Pre-Docked)) 250 mls @ 250 mls/hr IVPB DAILY [facility] PRN Reason: Protocol Last Admin: 09/01/16 10:24 Dose: 250 mls/hr Meropenem 1 gm/ Dextrose 100 mls @ 250 mls/hr IVPB Q8H-IV [facility] PRN Reason: Protocol Last Admin: 09/01/16 10:24 Dose: 250 mls/hr Multivitamins/Minerals/Vitamin C (Tab-A-Vit -) 1 tab PO DAILY [facility] Last Admin: 09/01/16 10:23 Dose: 1 tab Oxycodone HCl (Roxicodone -) 5 mg PO Q4H PRN Oxycodone HCl (Roxicodone -) 10 mg PO Q4H PRN Last Admin: 09/01/16 10:22 Dose: 10 mg - Objective Vital Signs: Vital Signs Temperature 98.2 F 09/01/16 13:53 Pulse Rate 86 09/01/16 13:53 Respiratory Rate 20 09/01/16 13:53 Blood Pressure 105/72 09/01/16 13:53 O2 Sat by Pulse Oximetry (%) 97 08/31/16 09:00 Constitutional: Yes: No Distress, Calm Cardiovascular: Yes: Regular Rate and Rhythm Respiratory: Yes: Regular, CTA Bilaterally Gastrointestinal: Yes: Normal Bowel Sounds, Soft Musculoskeletal: Yes: Other Extremities: Yes: Other (draiange) Integumentary: Yes: Other Wound/Incision: Yes: Dressing Dry and Intact Neurological: Yes: Alert, Oriented Psychiatric: Yes: Alert Labs: CBC, BMP 09/01/16 06:00 09/01/16 08:00 INR, PTT INR 1.02 (0.82-1.09) 08/28/16 19:50 Assessment/Plan Problem List - Problems (1) Cellulitis and abscess of leg Code(s): L02.419 - CUTANEOUS ABSCESS OF LIMB, UNSPECIFIED L03.119 - CELLULITIS OF UNSPECIFIED PART OF LIMB (2) Open wound of lower limb Code(s): S81.809A - UNSPECIFIED OPEN WOUND, UNSPECIFIED LOWER LEG, INIT ENCNTR plan continue abx vascular note noted still awaiting fo identification vanco trough noted
--- NOTE | 2016-09-01 17:31 | PN ---
Progress Note, Physician History of Present Illness: STABLE - Current Medication List Current Medications: Active Medications Acetaminophen (Tylenol -) 325 mg PO Q4H PRN PRN Reason: FEVER OR PAIN Last Admin: 08/30/16 13:43 Dose: 325 mg Acetaminophen (Tylenol -) 650 mg PO Q4H PRN PRN Reason: FEVER OR PAIN Last Admin: 09/01/16 10:23 Dose: 650 mg Ascorbic Acid (Vitamin C -) 500 mg PO DAILY [facility] Last Admin: 09/01/16 10:23 Dose: 500 mg Heparin Sodium (Porcine) (Heparin -) 5,000 unit SQ BID [facility] Last Admin: 09/01/16 10:24 Dose: 5,000 unit Vancomycin HCl (Vancomycin (Pre-Docked)) 250 mls @ 250 mls/hr IVPB DAILY [facility] PRN Reason: Protocol Last Admin: 09/01/16 10:24 Dose: 250 mls/hr Meropenem 1 gm/ Dextrose 100 mls @ 250 mls/hr IVPB Q8H-IV [facility] PRN Reason: Protocol Last Admin: 09/01/16 10:24 Dose: 250 mls/hr Multivitamins/Minerals/Vitamin C (Tab-A-Vit -) 1 tab PO DAILY [facility] Last Admin: 09/01/16 10:23 Dose: 1 tab Oxycodone HCl (Roxicodone -) 5 mg PO Q4H PRN Oxycodone HCl (Roxicodone -) 10 mg PO Q4H PRN Last Admin: 09/01/16 10:22 Dose: 10 mg - Objective Vital Signs: Vital Signs Temperature 98.7 F 09/01/16 17:10 Pulse Rate 91 H 09/01/16 17:10 Respiratory Rate 20 09/01/16 17:10 Blood Pressure 113/72 09/01/16 17:10 O2 Sat by Pulse Oximetry (%) 97 09/01/16 09:00 Constitutional: Yes: No Distress HENT: Yes: Atraumatic Neck: Yes: Supple Cardiovascular: Yes: Regular Rate and Rhythm Respiratory: Yes: CTA Bilaterally Extremities: Yes: Other (rlex cellulitis) Neurological: Yes: Alert, Oriented Labs: CBC, BMP 09/01/16 06:00 09/01/16 08:00 INR, PTT INR 1.02 (0.82-1.09) 08/28/16 19:50 Problem List - Problems (1) Cellulitis and abscess of leg Code(s): L02.419 - CUTANEOUS ABSCESS OF LIMB, UNSPECIFIED L03.119 - CELLULITIS OF UNSPECIFIED PART OF LIMB (2) Open wound of lower limb Code(s): S81.809A - UNSPECIFIED OPEN WOUND, UNSPECIFIED LOWER LEG, INIT ENCNTR (3) Venous stasis dermatitis of lower extremity Code(s): I83.10 - VARICOSE VEINS OF UNSP LOWER EXTREMITY WITH INFLAMMATION Assessment/Plan Assessment/Plan 1.R FOOT CELLULITIS IV ABX, WOUND CARE PRN PAIN MEDS MULTI VITAMIN dressing change WOUND CARE CONSULT dr HARMAN CONSULT SEEN
[2016-09-01] MEDS ORDERED: ACETAMINOPHEN 325 MG TABLET (FP) PO PRN ×2 (21:35→21:36)
[2016-09-01] MEDS ORDERED: oxyCODONE HCL 5 MG TABLET PO PRN (21:35)
[2016-09-02] MEDS: MEROPENEM 1 GM in DEXTROSE 5%-WATER - 100 ML IVPB SCH ×3 (02:46→17:59)
[2016-09-02] MEDS ORDERED: PT OWN MED DRAWER 7, Y5N ONE ×3 (09:15→20:44)
[2016-09-02] MEDS: HEPARIN NA (PORCINE) 5,000 UNITS/ML 1ML VIAL SQ SCH ×2 (11:15→21:00)
[2016-09-02] MEDS: ASCORBIC ACID 500 MG TABLET (FP) PO SCH (11:16)
[2016-09-02] MEDS: VANCOMYCIN 1 GRAM (PRE-DOCKED) 250 ML IVPB SCH (11:16)
[2016-09-02] MEDS: MULTIVITAMINS (DAILY MVI) TABLET (FP) PO SCH (11:16)
[2016-09-02] MEDS: oxyCODONE HCL 5 MG TABLET PO PRN ×2 (11:19→18:05)
[2016-09-02] MEDS: ACETAMINOPHEN 325 MG TABLET (FP) PO PRN ×2 (11:19→18:05)
--- NOTE | 2016-09-02 14:34 | PN ---
Progress Note, Physician History of Present Illness: STABLE - Current Medication List Current Medications: Active Medications Acetaminophen (Tylenol -) 325 mg PO Q4H PRN PRN Reason: FEVER OR PAIN Last Admin: 08/30/16 13:43 Dose: 325 mg Acetaminophen (Tylenol -) 650 mg PO Q4H PRN PRN Reason: FEVER OR PAIN Last Admin: 09/02/16 11:19 Dose: 650 mg Acetaminophen (Tylenol -) 325 mg PO Q4H PRN PRN Reason: PAIN Stop: 09/04/16 21:34 Acetaminophen (Tylenol -) 650 mg PO Q4H PRN PRN Reason: PAIN Stop: 09/04/16 21:35 Ascorbic Acid (Vitamin C -) 500 mg PO DAILY [facility] Last Admin: 09/02/16 11:16 Dose: 500 mg Heparin Sodium (Porcine) (Heparin -) 5,000 unit SQ BID [facility] Last Admin: 09/02/16 11:15 Dose: 5,000 unit Vancomycin HCl (Vancomycin (Pre-Docked)) 250 mls @ 250 mls/hr IVPB DAILY [facility] PRN Reason: Protocol Last Admin: 09/02/16 11:16 Dose: 250 mls/hr Meropenem 1 gm/ Dextrose 100 mls @ 250 mls/hr IVPB Q8H-IV [facility] PRN Reason: Protocol Last Admin: 09/02/16 11:15 Dose: 250 mls/hr Multivitamins/Minerals/Vitamin C (Tab-A-Vit -) 1 tab PO DAILY [facility] Last Admin: 09/02/16 11:16 Dose: 1 tab Oxycodone HCl (Roxicodone -) 5 mg PO Q4H PRN PRN Reason: PAIN SCALE 1-5 Oxycodone HCl (Roxicodone -) 10 mg PO Q4H PRN PRN Reason: PAIN SCALE 6-10 Last Admin: 09/02/16 11:19 Dose: 10 mg - Objective Vital Signs: Vital Signs Temperature 97.7 F 09/02/16 14:10 Pulse Rate 72 09/02/16 14:10 Respiratory Rate 20 09/02/16 14:10 Blood Pressure 106/66 09/02/16 14:10 O2 Sat by Pulse Oximetry (%) 97 09/02/16 09:00 Constitutional: Yes: No Distress HENT: Yes: Atraumatic Neck: Yes: Supple Cardiovascular: Yes: Regular Rate and Rhythm Respiratory: Yes: CTA Bilaterally Gastrointestinal: Yes: Normal Bowel Sounds Extremities: Yes: WNL Neurological: Yes: Alert, Oriented Labs: CBC, BMP 09/01/16 06:00 09/01/16 08:00 INR, PTT INR 1.02 (0.82-1.09) 08/28/16 19:50 Problem List - Problems (1) Cellulitis and abscess of leg Code(s): L02.419 - CUTANEOUS ABSCESS OF LIMB, UNSPECIFIED L03.119 - CELLULITIS OF UNSPECIFIED PART OF LIMB (2) Open wound of lower limb Code(s): S81.809A - UNSPECIFIED OPEN WOUND, UNSPECIFIED LOWER LEG, INIT ENCNTR (3) Venous stasis dermatitis of lower extremity Code(s): I83.10 - VARICOSE VEINS OF UNSP LOWER EXTREMITY WITH INFLAMMATION Assessment/Plan Assessment/Plan 1.R FOOT CELLULITIS IV ABX, WOUND CARE PRN PAIN MEDS MULTI VITAMIN dressing change
--- NOTE | 2016-09-02 14:55 | PN ---
Progress Note, Physician History of Present Illness: patient doing well drainage decreasing patient feels much ebtter - Current Medication List Current Medications: Active Medications Acetaminophen (Tylenol -) 325 mg PO Q4H PRN PRN Reason: FEVER OR PAIN Last Admin: 08/30/16 13:43 Dose: 325 mg Acetaminophen (Tylenol -) 650 mg PO Q4H PRN PRN Reason: FEVER OR PAIN Last Admin: 09/02/16 11:19 Dose: 650 mg Acetaminophen (Tylenol -) 325 mg PO Q4H PRN PRN Reason: PAIN Stop: 09/04/16 21:34 Acetaminophen (Tylenol -) 650 mg PO Q4H PRN PRN Reason: PAIN Stop: 09/04/16 21:35 Ascorbic Acid (Vitamin C -) 500 mg PO DAILY [facility] Last Admin: 09/02/16 11:16 Dose: 500 mg Heparin Sodium (Porcine) (Heparin -) 5,000 unit SQ BID [facility] Last Admin: 09/02/16 11:15 Dose: 5,000 unit Vancomycin HCl (Vancomycin (Pre-Docked)) 250 mls @ 250 mls/hr IVPB DAILY [facility] PRN Reason: Protocol Last Admin: 09/02/16 11:16 Dose: 250 mls/hr Meropenem 1 gm/ Dextrose 100 mls @ 250 mls/hr IVPB Q8H-IV [facility] PRN Reason: Protocol Last Admin: 09/02/16 11:15 Dose: 250 mls/hr Multivitamins/Minerals/Vitamin C (Tab-A-Vit -) 1 tab PO DAILY [facility] Last Admin: 09/02/16 11:16 Dose: 1 tab Oxycodone HCl (Roxicodone -) 5 mg PO Q4H PRN PRN Reason: PAIN SCALE 1-5 Oxycodone HCl (Roxicodone -) 10 mg PO Q4H PRN PRN Reason: PAIN SCALE 6-10 Last Admin: 09/02/16 11:19 Dose: 10 mg - Objective Vital Signs: Vital Signs Temperature 97.7 F 09/02/16 14:10 Pulse Rate 72 09/02/16 14:10 Respiratory Rate 20 09/02/16 14:10 Blood Pressure 106/66 09/02/16 14:10 O2 Sat by Pulse Oximetry (%) 97 09/02/16 09:00 Constitutional: Yes: No Distress, Calm Neck: Yes: Supple, Trachea Midline Cardiovascular: Yes: Regular Rate and Rhythm Respiratory: Yes: Regular, CTA Bilaterally Gastrointestinal: Yes: Normal Bowel Sounds, Soft Musculoskeletal: Yes: Other Extremities: Yes: Other Neurological: Yes: Alert, Oriented Psychiatric: Yes: Alert, Oriented Labs: CBC, BMP 09/01/16 06:00 09/01/16 08:00 INR, PTT INR 1.02 (0.82-1.09) 08/28/16 19:50 Assessment/Plan Problem List - Problems (1) Cellulitis and abscess of leg Code(s): L02.419 - CUTANEOUS ABSCESS OF LIMB, UNSPECIFIED L03.119 - CELLULITIS OF UNSPECIFIED PART OF LIMB (2) Open wound of lower limb Code(s): S81.809A - UNSPECIFIED OPEN WOUND, UNSPECIFIED LOWER LEG, INIT ENCNTR plan continue abx organisms identified continue current mgmt will change to po abx on wed complete 7 days of iv abx will need oral for another 10 days
[2016-09-03] MEDS: MEROPENEM 1 GM in DEXTROSE 5%-WATER - 100 ML IVPB SCH ×3 (01:05→18:37)
[2016-09-03] MEDS: oxyCODONE HCL 5 MG TABLET PO PRN ×2 (01:13→19:03)
[2016-09-03] MEDS: ACETAMINOPHEN 325 MG TABLET (FP) PO PRN ×3 (01:13→19:01)
[2016-09-03] MEDS: HEPARIN NA (PORCINE) 5,000 UNITS/ML 1ML VIAL SQ SCH ×2 (10:50→21:57)
[2016-09-03] MEDS: MULTIVITAMINS (DAILY MVI) TABLET (FP) PO SCH (10:52)
[2016-09-03] MEDS: VANCOMYCIN 1 GRAM (PRE-DOCKED) 250 ML IVPB SCH (10:52)
[2016-09-03] MEDS: ASCORBIC ACID 500 MG TABLET (FP) PO SCH (10:53)
--- NOTE | 2016-09-03 14:57 | PN ---
Progress Note, Physician History of Present Illness: patient doing well wound healing oozing much less - Current Medication List Current Medications: Active Medications Acetaminophen (Tylenol -) 325 mg PO Q4H PRN PRN Reason: FEVER OR PAIN Last Admin: 09/03/16 11:00 Dose: 325 mg Acetaminophen (Tylenol -) 650 mg PO Q4H PRN PRN Reason: FEVER OR PAIN Last Admin: 09/03/16 01:13 Dose: 650 mg Acetaminophen (Tylenol -) 325 mg PO Q4H PRN PRN Reason: PAIN Stop: 09/04/16 21:34 Acetaminophen (Tylenol -) 650 mg PO Q4H PRN PRN Reason: PAIN Stop: 09/04/16 21:35 Ascorbic Acid (Vitamin C -) 500 mg PO DAILY [facility] Last Admin: 09/03/16 10:53 Dose: 500 mg Heparin Sodium (Porcine) (Heparin -) 5,000 unit SQ BID [facility] Last Admin: 09/03/16 10:50 Dose: 5,000 unit Vancomycin HCl (Vancomycin (Pre-Docked)) 250 mls @ 250 mls/hr IVPB DAILY [facility] PRN Reason: Protocol Last Admin: 09/03/16 10:52 Dose: 250 mls/hr Meropenem 1 gm/ Dextrose 100 mls @ 250 mls/hr IVPB Q8H-IV [facility] PRN Reason: Protocol Last Admin: 09/03/16 10:51 Dose: 250 mls/hr Multivitamins/Minerals/Vitamin C (Tab-A-Vit -) 1 tab PO DAILY [facility] Last Admin: 09/03/16 10:52 Dose: 1 tab Oxycodone HCl (Roxicodone -) 5 mg PO Q4H PRN PRN Reason: PAIN SCALE 1-5 Last Admin: 09/03/16 11:01 Dose: 5 mg Oxycodone HCl (Roxicodone -) 10 mg PO Q4H PRN PRN Reason: PAIN SCALE 6-10 Last Admin: 09/03/16 01:13 Dose: 10 mg - Objective Vital Signs: Vital Signs Temperature 98.6 F 09/03/16 14:13 Pulse Rate 90 09/03/16 14:13 Respiratory Rate 20 09/03/16 14:13 Blood Pressure 114/68 09/03/16 14:13 O2 Sat by Pulse Oximetry (%) 97 09/02/16 20:58 Constitutional: Yes: No Distress, Calm Cardiovascular: Yes: Regular Rate and Rhythm Respiratory: Yes: Regular, CTA Bilaterally Gastrointestinal: Yes: Normal Bowel Sounds, Soft Musculoskeletal: Yes: WNL Extremities: Yes: Other Integumentary: Yes: Erythema (minimal) Wound/Incision: Yes: Dressing Dry and Intact, Draining (minimal) Psychiatric: Yes: Alert, Oriented Labs: CBC, BMP 09/01/16 06:00 09/01/16 08:00 INR, PTT INR 1.02 (0.82-1.09) 08/28/16 19:50 Assessment/Plan Problem List - Problems (1) Cellulitis and abscess of leg Code(s): L02.419 - CUTANEOUS ABSCESS OF LIMB, UNSPECIFIED L03.119 - CELLULITIS OF UNSPECIFIED PART OF LIMB (2) Open wound of lower limb Code(s): S81.809A - UNSPECIFIED OPEN WOUND, UNSPECIFIED LOWER LEG, INIT ENCNTR plan continue abx organisms identified continue current mgmt will change to po abx on wed complete 7 days of iv abx will need oral for another 10 days on wed patient can be switched to oral levaquin 750mg daily and given for another 7 more days follow up with vascular thereafter
[2016-09-03] MEDS ORDERED: PT OWN MED DRAWER 7, Y5N ONE (18:19)
--- NOTE | 2016-09-03 20:25 | PN ---
Progress Note, Physician History of Present Illness: STABLE - Current Medication List Current Medications: Active Medications Acetaminophen (Tylenol -) 325 mg PO Q4H PRN PRN Reason: FEVER OR PAIN Last Admin: 09/03/16 11:00 Dose: 325 mg Acetaminophen (Tylenol -) 650 mg PO Q4H PRN PRN Reason: FEVER OR PAIN Last Admin: 09/03/16 19:01 Dose: 650 mg Acetaminophen (Tylenol -) 325 mg PO Q4H PRN PRN Reason: PAIN Stop: 09/04/16 21:34 Acetaminophen (Tylenol -) 650 mg PO Q4H PRN PRN Reason: PAIN Stop: 09/04/16 21:35 Ascorbic Acid (Vitamin C -) 500 mg PO DAILY [facility] Last Admin: 09/03/16 10:53 Dose: 500 mg Heparin Sodium (Porcine) (Heparin -) 5,000 unit SQ BID [facility] Last Admin: 09/03/16 10:50 Dose: 5,000 unit Vancomycin HCl (Vancomycin (Pre-Docked)) 250 mls @ 250 mls/hr IVPB DAILY [facility] PRN Reason: Protocol Last Admin: 09/03/16 10:52 Dose: 250 mls/hr Meropenem 1 gm/ Dextrose 100 mls @ 250 mls/hr IVPB Q8H-IV [facility] PRN Reason: Protocol Last Admin: 09/03/16 18:37 Dose: 250 mls/hr Multivitamins/Minerals/Vitamin C (Tab-A-Vit -) 1 tab PO DAILY [facility] Last Admin: 09/03/16 10:52 Dose: 1 tab Oxycodone HCl (Roxicodone -) 5 mg PO Q4H PRN PRN Reason: PAIN SCALE 1-5 Last Admin: 09/03/16 11:01 Dose: 5 mg Oxycodone HCl (Roxicodone -) 10 mg PO Q4H PRN PRN Reason: PAIN SCALE 6-10 Last Admin: 09/03/16 19:03 Dose: 10 mg - Objective Vital Signs: Vital Signs Temperature 98.6 F 09/03/16 14:13 Pulse Rate 90 09/03/16 14:13 Respiratory Rate 20 09/03/16 14:13 Blood Pressure 114/68 09/03/16 14:13 O2 Sat by Pulse Oximetry (%) 97 09/03/16 09:00 Constitutional: Yes: No Distress HENT: Yes: Atraumatic Neck: Yes: Supple Cardiovascular: Yes: Regular Rate and Rhythm Respiratory: Yes: CTA Bilaterally Gastrointestinal: Yes: Normal Bowel Sounds Extremities: Yes: Other (r rm cellulitis improving) Neurological: Yes: Alert, Oriented Labs: CBC, BMP 09/01/16 06:00 09/01/16 08:00 INR, PTT INR 1.02 (0.82-1.09) 08/28/16 19:50 Problem List - Problems (1) Cellulitis and abscess of leg Code(s): L02.419 - CUTANEOUS ABSCESS OF LIMB, UNSPECIFIED L03.119 - CELLULITIS OF UNSPECIFIED PART OF LIMB (2) Open wound of lower limb Code(s): S81.809A - UNSPECIFIED OPEN WOUND, UNSPECIFIED LOWER LEG, INIT ENCNTR (3) Venous stasis dermatitis of lower extremity Code(s): I83.10 - VARICOSE VEINS OF UNSP LOWER EXTREMITY WITH INFLAMMATION Assessment/Plan Assessment/Plan 1.R FOOT CELLULITIS IV ABX, WOUND CARE PRN PAIN MEDS MULTI VITAMIN dressing change
[2016-09-04] MEDS ORDERED: PT OWN MED DRAWER 7, Y5N ONE ×3 (00:48→17:18)
[2016-09-04] MEDS: MEROPENEM 1 GM in DEXTROSE 5%-WATER - 100 ML IVPB SCH ×3 (01:26→17:23)
[2016-09-04] MEDS: HEPARIN NA (PORCINE) 5,000 UNITS/ML 1ML VIAL SQ SCH (10:35)
[2016-09-04] MEDS: MULTIVITAMINS (DAILY MVI) TABLET (FP) PO SCH (10:35)
[2016-09-04] MEDS: VANCOMYCIN 1 GRAM (PRE-DOCKED) 250 ML IVPB SCH (10:35)
[2016-09-04] MEDS: ASCORBIC ACID 500 MG TABLET (FP) PO SCH (10:36)
[2016-09-04] MEDS: ACETAMINOPHEN 325 MG TABLET (FP) PO PRN (10:43)
[2016-09-04] MEDS: oxyCODONE HCL 5 MG TABLET PO PRN (10:44)
--- NOTE | 2016-09-04 12:46 | PN ---
Progress Note, Physician History of Present Illness: patient doing well wound healing patient says leg feels better - Current Medication List Current Medications: Active Medications Acetaminophen (Tylenol -) 325 mg PO Q4H PRN PRN Reason: FEVER OR PAIN Last Admin: 09/03/16 11:00 Dose: 325 mg Acetaminophen (Tylenol -) 650 mg PO Q4H PRN PRN Reason: FEVER OR PAIN Last Admin: 09/04/16 10:43 Dose: 650 mg Acetaminophen (Tylenol -) 325 mg PO Q4H PRN PRN Reason: PAIN Stop: 09/04/16 21:34 Acetaminophen (Tylenol -) 650 mg PO Q4H PRN PRN Reason: PAIN Stop: 09/04/16 21:35 Ascorbic Acid (Vitamin C -) 500 mg PO DAILY [facility] Last Admin: 09/04/16 10:36 Dose: 500 mg Heparin Sodium (Porcine) (Heparin -) 5,000 unit SQ BID [facility] Last Admin: 09/04/16 10:35 Dose: 5,000 unit Vancomycin HCl (Vancomycin (Pre-Docked)) 250 mls @ 250 mls/hr IVPB DAILY [facility] PRN Reason: Protocol Last Admin: 09/04/16 10:35 Dose: 250 mls/hr Meropenem 1 gm/ Dextrose 100 mls @ 250 mls/hr IVPB Q8H-IV [facility] PRN Reason: Protocol Last Admin: 09/04/16 10:36 Dose: 250 mls/hr Multivitamins/Minerals/Vitamin C (Tab-A-Vit -) 1 tab PO DAILY [facility] Last Admin: 09/04/16 10:35 Dose: 1 tab Oxycodone HCl (Roxicodone -) 5 mg PO Q4H PRN PRN Reason: PAIN SCALE 1-5 Last Admin: 09/03/16 11:01 Dose: 5 mg Oxycodone HCl (Roxicodone -) 10 mg PO Q4H PRN PRN Reason: PAIN SCALE 6-10 Last Admin: 09/04/16 10:44 Dose: 10 mg - Objective Vital Signs: Vital Signs Temperature 97.4 F L 09/04/16 09:00 Pulse Rate 72 09/04/16 09:00 Respiratory Rate 18 09/04/16 09:00 Blood Pressure 103/60 09/04/16 09:00 O2 Sat by Pulse Oximetry (%) 98 09/03/16 21:00 Constitutional: Yes: No Distress, Calm Cardiovascular: Yes: Regular Rate and Rhythm Respiratory: Yes: Regular, CTA Bilaterally Gastrointestinal: Yes: Normal Bowel Sounds, Soft Musculoskeletal: Yes: Other Extremities: Yes: Other Integumentary: Yes: WNL Wound/Incision: Yes: Dressing Dry and Intact, Other Neurological: Yes: Alert, Oriented Psychiatric: Yes: Alert Labs: CBC, BMP 09/01/16 06:00 09/01/16 08:00 INR, PTT INR 1.02 (0.82-1.09) 08/28/16 19:50 Assessment/Plan Problem List - Problems (1) Cellulitis and abscess of leg Code(s): L02.419 - CUTANEOUS ABSCESS OF LIMB, UNSPECIFIED L03.119 - CELLULITIS OF UNSPECIFIED PART OF LIMB (2) Open wound of lower limb Code(s): S81.809A - UNSPECIFIED OPEN WOUND, UNSPECIFIED LOWER LEG, INIT ENCNTR plan continue abx organisms identified please send patient home on oral levaquin 750mg daily for 10 days and ampicillin 500mg every 8 hourly for 10 days
--- NOTE | 2016-09-04 17:18 | DS ---
Physical Examination Vital Signs: Vital Signs Temperature 97.5 F L 09/04/16 14:26 Pulse Rate 80 09/04/16 14:26 Respiratory Rate 18 09/04/16 14:26 Blood Pressure 115/74 09/04/16 14:26 O2 Sat by Pulse Oximetry (%) 95 09/04/16 09:00 Constitutional: Yes: No Distress HENT: Yes: Atraumatic Neck: Yes: Supple Cardiovascular: Yes: Regular Rate and Rhythm Respiratory: Yes: CTA Bilaterally Gastrointestinal: Yes: Normal Bowel Sounds Extremities: Yes: Other (cellulitis r rm) Neurological: Yes: Alert, Oriented Labs: CBC, BMP 09/01/16 06:00 09/01/16 08:00 Discharge Summary Reason For Visit: OPEN WOUND OF LOWER LIMB Current Active Problems Cellulitis and abscess of leg (Acute) Open wound of lower limb (Acute) - Instructions Referrals: Boone Stroud MD [Primary Care Provider] - Sharee Pena MD [Staff Physician] - - Home Medications Comprehensive Discharge Medication List: Ambulatory Orders Levofloxacin [Levaquin] 750 mg PO DAILY #10 tab 09/04/16 [facility] home requested id to call in ampicillin
[2016-09-04 18:11] VITALS: BP 109/52; PULSE 65; TEMP 98.4
== END 2016-09-04 19:14 | disposition home or self-care (01) | DRG 603 ==
LOC: JER 19:20 → JERBED 20:50 → J7W 08-29 13:24
PROVIDERS: ADMIT Internal Medicine; ATTEND Internal Medicine
DX: L03.115 Cellulitis of right lower limb (principal); I87.2 Venous insufficiency (chronic) (peripheral)
CPT/HCPCS: 36415; 71010-TC; 80053; 81003; 82550; 82553; 82803; 83605; 84484; 85025; 85610; 85730; 86850; 86900; 86901; 87040; 87070; 87086; 87186; 87205; 93005; 93010; 93971-TC; 97116-GP; 97161-GP; 99283-25; G0480; J1644

== ENCOUNTER → 2016-09-21 | Emergency (ER) | payer SELFPAY ==
[~2016-09-21] MED LIST: OXYCODONE/APAP 5/325MG COMBO TABLET ONE; OXYCODONE/APAP 5/325MG COMBO TABLET PO ONE
[2016-09-21 01:24] VITALS: BP 139/78; PULSE 111; TEMP 98.8; BMI 33.3
--- NOTE | 2016-09-21 03:39 | PDOC ---
History of Present Illness - General Chief Complaint: Wound Infection Stated Complaint: WOUND/PAIN RT LEG Time Seen by Provider: 09/21/16 02:22 - History of Present Illness Initial Comments: 09/21/16 03:39 CHIEF COMPLAINT: leg infection HISTORY OF PRESENT ILLNESS: 71 yo F with hx of chronic LLE cellulitis presents to this ER worsening pain, erythema, and swelling to RLE. Patient has been admitted to this hospital several times for IV antibiotics. Patient states that she was discharged recently and has a follow up appointment with Dr. Stroud on Saturday. No recent travel or sick contacts. SOCIAL HISTORY: Lives at home with son. SURGICAL HISTORY: Denies ALLERGIES: No known drug allergies REVIEW OF SYSTEMS General/Constitutional: Denies fever or chills. Denies weakness, weight change. Musculoskeletal: Pain and swelling to right lower leg. PHYSICAL EXAM General Appearance: Well-appearing, appropriately dressed. No apparent distress. Respiratory/Chest: Lungs CTAB. Cardiovascular: RRR. S1, S2. Vascular Pulses: Dorsalis-Pedis (R): 2+, Dorsalis-Pedis (L): 2+ Musculoskeletal/Extremities: Severe erythema and edema to RLE with marked skin breakdown and weeping to leg below the knee as well as the entire foot. Integumentary: See musculoskeletal/extremities. Appropriate color, dry, warm. No cyanosis, erythema, jaundice or rash Neurologic: Fully oriented, alert. Appropriate mood/affect. Motor strength 5/ 5. No appreciable EOM palsy, facial droop or sensory deficit. Past History - Past Medical History Allergies/Adverse Reactions: Allergies Allergy/AdvReac Type Severity Reaction Status Date / Time piperacillin sodium Allergy Intermediate Rash Verified 09/21/16 00:49 [From Zosyn] tazobactam sodium Allergy Intermediate Rash Verified 09/21/16 00:49 [From Zosyn] Home Medications: Ambulatory Orders Oxycodone HCl/Acetaminophen [Percocet 10-325 mg Tablet] 1 each PO Q6H PRN #16 tablet MDD 4 09/21/16 Anemia: No Asthma: No Cancer: No Cardiac Disorders: No CVA: No COPD: No CHF: No Dementia: No Diabetes: No GI Disorders: No Disorders: No HTN: No Hypercholesterolemia: No Liver Disease: No Seizures: No Thyroid Disease: No - Psycho/Social/Smoking Cessation Hx Anxiety: No Suicidal Ideation: No Smoking History: Never smoked Have you smoked in the past 12 months: No Number of Cigarettes Smoked Daily: 0 Hx Alcohol Use: No Drug/Substance Use Hx: No Substance Use Type: None Hx Substance Use Treatment: No *Physical Exam - Vital Signs Last Vital Signs Temp Pulse Resp BP Pulse Ox 98.8 F 111 H 18 139/78 94 L 09/21/16 00:50 09/21/16 00:50 09/21/16 00:50 09/21/16 00:50 09/21/16 00:50 ED Treatment Course - Medications Given in the ED: ED Medications Discontinued Medications Generic Name Dose Route Start Last Admin Trade Name Freq PRN Reason Stop Dose Admin Oxycodone/Acetaminophen 2 combo 09/21/16 02:47 09/21/16 03:17 Percocet 5/325 - PO 09/21/16 02:48 2 combo ONCE ONE Administration Medical Decision Making - Medical Decision Making 09/21/16 03:44 71 yo F with hx of chronic right leg cellulitis presents to ED with recurrent pain and weeping of R leg. Discussed case with MD Hansen, will discharge to home with pain medication and follow up with ID. -2 Percocet tab po Advised patient to take medication as prescribed and follow up with [facility] as planned. Advised patient of signs and symptoms for return to ER; patient verbalized understanding and grees to plan. *DC/Admit/Observation/Transfer Diagnosis at time of Disposition: Venous stasis dermatitis of right lower extremity - Discharge Dispostion Disposition: HOME Condition at time of disposition: Stable Admit: No - Prescriptions Prescriptions: Oxycodone HCl/Acetaminophen [Percocet 10-325 mg Tablet] 1 each PO Q6H PRN #16 tablet MDD 4 PRN Reason: Pain - Referrals Referrals: Sharee Pena MD [Primary Care Provider] - Boone Stroud MD [Staff Physician] - - Patient Instructions Printed Discharge Instructions: DI for Wound Infection Additional Instructions: Please take medication as prescribed; do NOT drive or operate machinery while taking this medication. Please follow up with Dr. Stroud as discussed. If you experience nausea, vomiting, diarrhea, fever, or any new or worsening symptoms, please return to the ER.
== END | disposition home or self-care (01) ==
LOC: JER 00:21
DX: I87.2 Venous insufficiency (chronic) (peripheral) (principal); L03.115 Cellulitis of right lower limb
CPT/HCPCS: 99281-25